=== PATIENT | male | born 1950 | race Caucasian/White ===

== ENCOUNTER 2017-03-28 05:27 | Day surgery (SDC) | payer BC ==
[2017-03-24 08:42] LABS: HEMATOCRIT 45.3 % (42.0-54.0); HEMOGLOBIN 15.8 g/dL (13.5-17.5); MCH 31.8 pg (26.0-34.0); MCHC 34.9 g/dL (31.0-37.0); MCV 91.1 fL (80.0-100.0); MEAN PLATELET VOLUME 10.2 fL (7.4-10.4); RBC 4.97 10x6/uL (4.20-6.10); RDW 13.5 % (11.5-14.5); WBC 6.4 10x3/uL (4.8-10.8)
[~2017-03-28 05:27] MED LIST: COZAAR50 MG; OMEPRAZOLE20 M1 PO; PEPCID20 MG PO; UROCIT-K10 MEQ PO; ZYLOPRIM300 MG PO
--- NOTE | 2017-03-28 07:07 | NUR ---
0705 PT STATES NO CHANGE IN HEALTH HISTORY SINCE INTERVIEWED 03/24/17 EXCEPT FOR BOWEL PREP FOR COLONOSCOPY. Rudi LANDIS R.N.
[2017-03-28 07:30] VITALS: BP 128/79; BMI 28.1
--- NOTE | 2017-03-28 17:44 | NUR ---
1240 DRESSED. AWAKE & ALERT. GIVEN DISCHARGE INFORMATION INCLUDING: MED REC, SHEET LISTING NSAIDS TO AVOID, D/C INSTRUCTIONS FOR COLON POLYPECTOMY,D/C INSTRUCTIONS FOR COLONOSCOPY, & [facility] D/C OUTPATIENT INSTRUCTIONS, & RTC APPT.. PT VOICED UNDERSTANDING. TO PRIVATE CAR PER WHEELCHAIR BY VOLUNTEER. HOME WITH , DONALD OSPINA. Rudi LANDIS R.N.
--- NOTE | 2017-03-30 14:00 | OP ---
PATIENT NAME: BIGG OSPINA MEDICAL RECORD: [id number] :54 LOCATION:D.OPS ADMISSION DATE: SURGEON: PARIS BRO MD DATE OF OPERATION: 03/28/2017 PREOPERATIVE DIAGNOSIS: Complex polyp of the transverse colon at 75 cm, which was a tubular adenoma. POSTOPERATIVE DIAGNOSES: Complex polyp of the transverse colon at 75 cm, which was a tubular adenoma with a total of 4 polyps including regrowth of a polyp at 75 cm. PROCEDURES: 1. Total colonoscopy to cecum. 2. Hot biopsy forceps polypectomy times 4. HEALTHCARE ANALYST: Paris Bro MD HEALTHCARE ANALYST: None. BLOOD LOSS: Minimal. ANESTHESIA: General. COMPLICATIONS: None. The procedure was performed in the operating room as I felt we were going to have to use the argon plasma critical care specialist. As it turned out, the argon plasma critical care specialist was not necessary during this operation. OPERATIVE COURSE: The patient was conveyed to the operating room electively on 03/28/2017. General anesthesia was induced by the anesthesia staff. The patient was placed in the [place] position. A digital rectal examination was performed. The prostate was slightly enlarged, symmetric and without nodules. A colonoscope was inserted through the anus. It was easily advanced to the cecum. The prep was adequate. I slowly withdrew the endoscope. The pullback was greater than a 25-minute pullback. A total of 4 hot biopsy forceps polypectomies were performed. The polyps ranged in size from 1.0-1.4 cm in size. This included the regrowth of a polyp at 75 cm. The tattoo was not easily visualized. I dragged the folds. I irrigated and aspirated extensively. A retroflexed view was obtained in the rectum. I then unretroflexed the scope and removed it under direct vision. The patient was then extubated and conveyed to post-anesthesia care unit, where he was in stable condition. I plan to see him in my office in 2-3 weeks. I will plan for the next colonoscopy with the argon plasma critical care specialist to take place in 1 year. TRANSINT:[id number] Voice Confirmation ID: [id number] DOCUMENT ID: [id number] OPERATIVE REPORT [id number] BIGG OSPINA ROBERT MD at 1400 CC: MADISON RAO MD and LIZZIE WOODS MD [id number] DICTATION DATE: 03/28/17 1035 COLLECTION ADMINISTRATOR: 03/28/17 1110 [facility] [place] 03/28/17 [id number] [place] [address]
--- NOTE | 2017-03-30 14:00 | HP ---
PATIENT: BIGG OSPINA MEDICAL RECORD: [id number] ACCOUNT: [id number] LOCATION:MAYTE : 54 ADMISSION DATE: 03/28/17 HISTORY AND PHYSICAL EXAMINATION ADDENDUM I have personally reviewed the endoscopic photos. In my history and physical examination, I typed history and physical on the chart, I stated that this was a tubular adenoma with dysplasia. Upon further review of the pathology, it revealed that there was a transverse colon polyp, which was a tubular adenoma with no high-grade dysplasia or malignancy, so that portion of the history and physical examination is incorrect. Otherwise, history and physical examination is unchanged from the typed one in the chart. I am going to plan for colonoscopy utilizing the argon plasma crew manager. TRANSINT:[id number] Voice Confirmation ID: [id number] DOCUMENT ID: [id number] PARIS BRO MD at 1400 CC: [id number] DICTATION DATE: 03/28/17 1028 FUR CUTTING MACHINE OPERATOR: 03/28/17 1153 [facility] 03/28/17 [id number] [place] [address]
== END 2017-03-28 12:40 | disposition home or self-care (01) ==
LOC: D.OPS 05:27 → D.PAN 07:30 → D.OPS 07:30
PROVIDERS: Anesthesiology
DX: D12.3 Benign neoplasm of transverse colon (principal); I10 Essential (primary) hypertension; G47.30 Sleep apnea, unspecified; K21.9 Gastro-esophageal reflux disease without esophagitis; Z01.812 Encounter for preprocedural laboratory examination

== ENCOUNTER 2018-04-24 08:50 | Day surgery (SDC) | payer BC ==
[~2018-04-24] VITALS: Ht 190.5 cm; Wt 100.0 kg
--- NOTE | ~2018-04-24 | OP ---
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 POSTOPERATIVE DIAGNOSES: History of a tubulovillous adenoma at 75 cm with no evidence of regrowth of the polyp. PROCEDURES: 1. Total colonoscopy to cecum. 2. Hot biopsy forceps of the scar at 75 cm, which was tattooed. SURGEON: Paris Bro MD SOFTWARE DEVELOPMENT INTERN: None. BLOOD LOSS: Minimal. ANESTHESIA: IV sedation. COMPLICATIONS: None. ENDOSCOPIC COURSE: The patient was conveyed to endoscopy suite electively on 04/24/2018. IV sedation was induced by the anesthesia staff. The patient was placed in the [place] position. A digital rectal examination was performed. The prostate was symmetric and without nodules. A colonoscope was inserted through the anus. It was easily advanced to the cecum. The prep was inadequate. I slowly withdrew the endoscope. I irrigated and aspirated extensively. I dragged the folds. A tattooed polyp was noted at 75 cm. A scar was noted. I biopsied the scar utilizing the hot biopsy forceps. I then continued to withdraw the endoscope. I irrigated and aspirated extensively. I dragged the folds. The pullback was greater than a 14-minute pullback. A retroflexed view was obtained in the rectum. I then unretroflexed the scope and removed it under direct vision. I will see the patient in my office in 2-3 weeks. If there is no evidence of polypoid tissue in the biopsy, I will plan to refer the patient back to Dr. Bhardwaj for surveillance colonoscopies in the future. TRANSINT:[id number] Voice Confirmation ID: [id number] DOCUMENT ID: [id number] PARIS BRO MD at 1603 CC: MADISON BHARDWAJ and LIZZIE WOODS MD [id number] DICTATION DATE: 04/24/18 1228 PREMIUM REPRESENTATIVE: 04/24/[address] [facility] 04/24/18 [place] [address]
[2018-04-24 09:09] LABS: HEMATOCRIT 48.5 % (42.0-54.0); HEMOGLOBIN 17.2 g/dL (13.5-17.5); MCH 32.5 pg (26.0-34.0); MCHC 35.5 g/dL (31.0-37.0); MCV 91.5 fL (80.0-100.0); RBC 5.3 10x6/uL (4.20-6.10); RDW 13.6 % (11.5-14.5); WBC 7.9 10x3/uL (4.8-10.8)
[2018-04-24 09:40] VITALS: BP 143/94; Ht 190.5 cm; Wt 100.0 kg
== END 2018-04-24 13:25 | disposition home or self-care (01) ==
LOC: D.OPS 08:50
PROVIDERS: Anesthesiology
DX: K63.5 Polyp of colon (principal); Z86.010 Personal history of colon polyps; Z01.812 Encounter for preprocedural laboratory examination

== ENCOUNTER 2018-10-24 05:19 | Outpatient (CLI) | payer BC ==
[~2018-10-24] VITALS: Ht 190.5 cm; Wt 100.0 kg
[2018-10-24 05:57] LABS: BASOPHILS 0.9 % (0-2); HEMATOCRIT 44.4 % (42.0-54.0); HEMOGLOBIN 15.4 g/dL (13.5-17.5); IMMATURE GRANULOCYTES 0.3 % (0-5); LYMPHOCYTES 34.6 % (15-50); MCH 31.4 pg (26.0-34.0); MCHC 34.7 g/dL (31.0-37.0); MCV 90.6 fL (80.0-100.0); MEAN PLATELET VOLUME 9.8 fL (7.4-10.4); MONOCYTES 7.5 % (2-11); NEUTROPHILS 48.7 % (40-80); PLATELET COUNT 255 10x3/uL (130-400); RDW 13.6 % (11.5-14.5); WBC 7.7 10x3/uL (4.8-10.8)
[2018-10-24 06:07] LABS: ANION GAP 10.5 mmol/L (8-16); CALCIUM 9.1 mg/dL (8.5-10.1); CARBON DIOXIDE 28.5 mmol/L (21.0-32.0); CREATININE - SERUM 1.1 mg/dL (0.6-1.3)
[2018-10-24 06:08] LABS: APTT 26.9 SECONDS (22.8-39.4); INR 1.02 (0.85-1.17); PROTIME 12.9 SECONDS (11.6-15.0)
[2018-10-24 07:15] VITALS: BP 149/86; Ht 190.5 cm; Wt 100.0 kg
--- NOTE | 2018-10-24 09:15 | NUR ---
REC'D FROM SPECIALS. FAMILY ACCOMPANYING PATIENT. DRESSING CDI TO RIGH SIDE. GRAPE JUICE BROUGHT TO PT.
--- NOTE | 2018-10-24 09:45 | NUR ---
EATING REGULAR LOW FAT DIET. DRESSING CDI. FAMILY AT BEDSIDE.
--- NOTE | 2018-10-24 10:30 | NUR ---
TOLERATED DIET. DRESSING CDI. NO C/O VOICE. FAMILTY AT BEDSIDE.
--- NOTE | 2018-10-24 12:00 | NUR ---
AMBULATED TO BATHROOM AND VOIDED WITHOUT DIFFICULTY. DRESSING CDI. FAMILY AT BEDSIDE.
--- NOTE | 2018-10-24 13:11 | NUR ---
IV DC'D WITH CATHETER INTACT. DRESSING CDI.
--- NOTE | 2018-10-24 13:15 | NUR ---
DC'D HOME WITH FAMILY VIA PRIVATE VEHICLE. TAKEN TO VEHICLE VIA WC. STABLE AT TIME OF DC.
== END 2018-10-24 13:15 | disposition home or self-care (01) ==
LOC: D.SP 05:19 → D.CT 08:00 → D.SP 08:00
PROVIDERS: Radiology Diagnostic Radiology; ATTEND Internal Medicine Gastroenterology
DX: K76.0 Fatty (change of) liver, not elsewhere classified (principal); R94.5 Abnormal results of liver function studies; Z01.812 Encounter for preprocedural laboratory examination

== ENCOUNTER 2019-11-04 09:55 | Day surgery (SDC) | payer MEDICARE, BC ==
[~2019-11-04] VITALS: Ht 190.5 cm; Wt 97.3 kg
[2019-11-04 10:13] LABS: HEMATOCRIT 49.3 % (42.0-54.0); HEMOGLOBIN 16.6 g/dL (13.5-17.5); MCH 31.4 pg (26.0-34.0); MCHC 33.7 g/dL (31.0-37.0); MCV 93.4 fL (80.0-100.0); MEAN PLATELET VOLUME 9.9 fL (7.4-10.4); RBC 5.28 10x6/uL (4.20-6.10); RDW 13.5 % (11.5-14.5); WBC 7.3 10x3/uL (4.8-10.8)
[2019-11-04 10:45] VITALS: BP 144/79; Ht 190.5 cm; Wt 97.3 kg
--- NOTE | 2019-11-04 12:39 | NUR ---
1228 IV DC'D. CATHETER TIP INTACT. NO BLEEDING AT SITE. BANDAID APPLIED. REVIEWED DISCHARGE INSTRUCTIONS WITH PT WHO VOICES UNDERSTANDING OF THE INSTRUCTIONS.
--- NOTE | 2019-11-06 09:52 | OP ---
PATIENT NAME: BIGG OSPINA MEDICAL RECORD: [id number] :54 LOCATION:DSowmyaOPS ADMISSION DATE: SURGEON: DAYNA GARCIA DO DATE OF OPERATION: 11/04/2019 PROCEDURES: Colonoscopy with polypectomy. INDICATIONS FOR PROCEDURE: Personal history of colon polyps. This is a 1-year recall. The patient also has a family history positive for cancer involving the digestive tract. SCOPE: Olympus video pediatric colonoscope. MEDICATIONS: Propofol 450 mg IV per anesthesia. WITHDRAWAL TIME: 22 minutes. ESTIMATED BLOOD LOSS: Minimal. COMPLICATIONS: None. FINDINGS AND DESCRIPTION OF PROCEDURE: Informed consent was given. The patient was made comfortable with the above medication. After reaching an adequate level of sedation by slow IV push, the patient was placed on his left side. A digital rectal examination was performed and revealed some prostatic hyperplasia. The endoscope was then advanced under direct visualization through the rectum to the cecum, confirmed by the presence of the appendiceal orifice and ileocecal valve. The endoscope was slowly withdrawn and mucosa was carefully examined. The prep quality was good. There were 5 polyps visualized on today's examination. One was located in the sigmoid colon. It was a benign-appearing sessile polyp, which measured approximately 3 mm in diameter. It was removed using hot forceps. In the transverse colon, there was a benign-appearing sessile polyp, which measured approximately 5 mm in diameter. It was removed using a hot snare. In the ascending colon, there were 3 separate benign-appearing sessile polyps, which ranged in size from 2-4 mm in diameter. They were all removed using hot forceps. There was evidence of mild diverticulosis involving the sigmoid colon. Retroflexion was performed in the rectum with a normal-appearing rectal wall being visualized. The endoscope was withdrawn from the patient. The patient tolerated the procedure well and there were no complications. IMPRESSION: 1. Mild diverticulosis without diverticulitis. 2. Five separate polyps visualized throughout the colon, which were removed using a combination of a hot snare and hot forceps. PLAN AND RECOMMENDATIONS: 1. Discharge home when recovery parameters are met. 2. Follow up biopsy specimen results. 3. High fiber diet. 4. Continue current medications. 5. Recall colonoscopy in 2-3 years, pending results of pathology from polyps removed on today's examination. TRANSINT:[id number] Voice Confirmation ID: [id number] DOCUMENT ID: [id number] OPERATIVE REPORT [id number] BIGG OSPINA NATHAN A DO at 0952 CC: [id number] DICTATION DATE: 11/04/19 1149 WHEEL INSTALLER: 11/04/19 1700 [facility] 11/04/19 [facility] [address] [id number]
== END 2019-11-04 12:37 | disposition home or self-care (01) ==
LOC: D.OPS 09:55
PROVIDERS: Anesthesiology; ATTEND Internal Medicine Gastroenterology
DX: K63.5 Polyp of colon (principal); Z86.010 Personal history of colon polyps; R12 Heartburn